=== PATIENT | male | born 1940 | race Native Hawaiian/Other Pacific Islander ===

== ENCOUNTER 2016-04-20 13:10 | Outpatient (CLI) | payer OTHER, MEDICARE ==
[2016-04-20 13:50] LABS: POTASSIUM 4.3 mmol/L (3.6-5.2); SODIUM 139 mmol/L (136-145)
[2016-04-20 14:34] LABS: PLATELET COUNT 165 K/uL (142-355)
== END 2016-04-20 19:49 | disposition home or self-care (01) ==
LOC: LAB 13:10
PROVIDERS: Nurse Practitioner Family
DX: I25.10 Atherosclerotic heart disease of native coronary artery without angina pectoris (principal); E11.9 Type 2 diabetes mellitus without complications; R53.83 Other fatigue; I10 Essential (primary) hypertension; Z12.5 Encounter for screening for malignant neoplasm of prostate
CPT/HCPCS: 80053; 80061; 83036; 84439; 84443; 85027; G0103

== ENCOUNTER 2016-05-21 08:50 | Outpatient (CLI) | payer OTHER, MEDICARE | END 2016-05-21 09:50 | disposition home or self-care (01) | LOC: LABW 08:50 | PROVIDERS: Internal Medicine Interventional Cardiology | DX: E78.4 Other hyperlipidemia (principal) | CPT/HCPCS: 36415; 80061; 80076 ==

== ENCOUNTER 2016-09-07 12:48 | Outpatient (CLI) | payer OTHER, MEDICARE ==
[2016-09-07 13:16] LABS: PLATELET COUNT 220 K/uL (142-355)
[2016-09-07 13:32] LABS: POTASSIUM 3.9 mmol/L (3.6-5.2); SODIUM 140 mmol/L (136-145)
== END 2016-09-07 13:50 | disposition home or self-care (01) ==
LOC: LAB 12:48
PROVIDERS: Nurse Practitioner Family
DX: Z00.00 Encounter for general adult medical examination without abnormal findings (principal); E11.9 Type 2 diabetes mellitus without complications; R53.83 Other fatigue; R53.81 Other malaise; I10 Essential (primary) hypertension; E55.9 Vitamin D deficiency, unspecified
CPT/HCPCS: 80053; 80061; 82306; 82607; 83036; 84436; 84443; 85027

== ENCOUNTER 2016-09-14 08:07 | Outpatient (CLI) | payer OTHER, MEDICARE | END 2016-09-14 19:13 | disposition home or self-care (01) | LOC: US 08:07 | DX: R10.13 Epigastric pain (principal) ==

== ENCOUNTER 2016-11-30 12:56 | Outpatient (CLI) | payer OTHER, MEDICARE ==
[2016-11-30 14:08] LABS: PLATELET COUNT 260 K/uL (142-355)
[2016-11-30 14:28] LABS: POTASSIUM 4.1 mmol/L (3.6-5.2); SODIUM 137 mmol/L (136-145)
== END 2016-11-30 14:00 | disposition home or self-care (01) ==
LOC: LAB 12:56
PROVIDERS: Nurse Practitioner Family
DX: Z00.00 Encounter for general adult medical examination without abnormal findings (principal); I10 Essential (primary) hypertension; R53.83 Other fatigue; R53.81 Other malaise; R10.13 Epigastric pain; R73.09 Other abnormal glucose
CPT/HCPCS: 80053; 80061; 82248; 83036; 84436; 84443; 85027

== ENCOUNTER 2016-12-20 08:20 | Outpatient (CLI) | payer OTHER, MEDICARE ==
[2016-12-20 15:16] LABS: PLATELET COUNT 191 K/uL (142-355)
[2016-12-20 15:26] LABS: SODIUM 135 mmol/L (136-145)
== END 2016-12-20 09:30 | disposition home or self-care (01) ==
LOC: LAB 08:20 → US 08:20
PROVIDERS: Nurse Practitioner Family
DX: R10.84 Generalized abdominal pain (principal)
CPT/HCPCS: 80053; 82150; 83690; 85027; 86318

== ENCOUNTER 2017-04-12 06:39 | Outpatient (CLI) | payer OTHER, MEDICARE | END 2017-04-12 21:56 | disposition home or self-care (01) | LOC: LABW 06:39 | DX: N40.1 Benign prostatic hyperplasia with lower urinary tract symptoms (principal) | CPT/HCPCS: 36415; 84153 ==

== ENCOUNTER 2017-08-09 21:57 | Emergency (ER) | payer OTHER, MEDICARE ==
[~2017-08-09] VITALS: Ht 170.2 cm; Wt 81.6 kg
[2017-08-09 22:25] VITALS: TEMP 98.7
[2017-08-10 01:11] VITALS: BP 129/63
== END 2017-08-10 01:17 | disposition home or self-care (01) ==
LOC: ED 21:57
DX: S22.32XA Fracture of one rib, left side, initial encounter for closed fracture (principal); S43.102A Unspecified dislocation of left acromioclavicular joint, initial encounter; W20.8XXA Other cause of strike by thrown, projected or falling object, initial encounter; Y92.89 Other specified places as the place of occurrence of the external cause
CPT/HCPCS: 99283; J1885

== ENCOUNTER 2017-08-19 13:39 | Outpatient (CLI) | payer OTHER, MEDICARE ==
[2017-08-19 14:36] LABS: PLATELET COUNT 262 K/uL (142-355)
[2017-08-19 15:24] LABS: POTASSIUM 4.3 mmol/L (3.6-5.2)
== END 2017-08-19 19:51 | disposition home or self-care (01) ==
LOC: LAB 13:39
PROVIDERS: Nurse Practitioner Family
DX: I10 Essential (primary) hypertension (principal); R53.83 Other fatigue; R53.81 Other malaise; E11.9 Type 2 diabetes mellitus without complications
CPT/HCPCS: 36415; 80053; 80061; 83036; 84436; 84443; 85027

== ENCOUNTER 2019-06-26 07:54 | Outpatient (CLI) | payer OTHER, MEDICARE | END 2019-06-26 22:04 | disposition home or self-care (01) | LOC: LABW 07:54 | PROVIDERS: Internal Medicine Interventional Cardiology | DX: Z12.5 Encounter for screening for malignant neoplasm of prostate (principal); E11.9 Type 2 diabetes mellitus without complications; E78.49 Other hyperlipidemia | CPT/HCPCS: 36415; 80061; 80076; 83036; 84153 ==

== ENCOUNTER 2019-10-06 14:54 | Outpatient (CLI) | payer OTHER, MEDICARE | END 2019-10-06 19:42 | disposition home or self-care (01) | LOC: LAB 14:54 | DX: U07.1 COVID-19 (principal); Z20.828 Contact with and (suspected) exposure to other viral communicable diseases | CPT/HCPCS: 87635; G2023; U0003 ==

== ENCOUNTER 2020-06-21 07:30 | Outpatient (CLI) | payer OTHER, MEDICARE | END 2020-06-21 19:39 | disposition home or self-care (01) | LOC: LABW 07:30 | PROVIDERS: ATTEND Internal Medicine Interventional Cardiology | DX: E78.49 Other hyperlipidemia (principal) | CPT/HCPCS: 36415; 80061; 80076 ==

== ENCOUNTER 2020-06-30 08:01 | Outpatient (CLI) | payer OTHER, MEDICARE | END 2020-06-30 23:14 | disposition home or self-care (01) | LOC: LABW 08:01 | PROVIDERS: ATTEND Urology | DX: R97.20 Elevated prostate specific antigen [PSA] (principal); R73.03 Prediabetes | CPT/HCPCS: 36415; 83036; 84153 ==

== ENCOUNTER 2020-07-16 15:04 | Emergency (ER) | payer OTHER, MEDICARE ==
[~2020-07-16] VITALS: Ht 167.6 cm; Wt 79.4 kg
[2020-07-16 15:12] VITALS: BP 132/79; TEMP 98
== END 2020-07-16 16:13 | disposition home or self-care (01) ==
LOC: ED 15:04
DX: S61.245A Puncture wound with foreign body of left ring finger without damage to nail, initial encounter (principal); W45.8XXA Other foreign body or object entering through skin, initial encounter; Y92.89 Other specified places as the place of occurrence of the external cause
CPT/HCPCS: 99282; J2001

== ENCOUNTER 2020-07-30 07:23 | Outpatient (CLI) | payer OTHER, MEDICARE ==
[2020-07-30 08:24] LABS: PLATELET COUNT 177 K/uL (142-355)
[2020-07-30 08:26] LABS: POTASSIUM 3.9 mmol/L (3.6-5.2)
== END 2020-07-30 18:53 | disposition home or self-care (01) ==
LOC: LABW 07:23
PROVIDERS: ATTEND Internal Medicine Endocrinology, Diabetes & Metabolism
DX: Z00.00 Encounter for general adult medical examination without abnormal findings (principal); E11.9 Type 2 diabetes mellitus without complications; I10 Essential (primary) hypertension; R53.83 Other fatigue; R53.81 Other malaise; E78.49 Other hyperlipidemia; Z79.899 Other long term (current) drug therapy
CPT/HCPCS: 36415; 80048; 82306; 82607; 83525; 83735; 84681; 85027

== ENCOUNTER 2021-02-24 10:19 | Outpatient (CLI) | payer OTHER, MEDICARE | END 2021-02-24 23:01 | disposition home or self-care (01) | LOC: RAD 10:19 | PROVIDERS: ATTEND Nurse Practitioner Family | DX: M25.552 Pain in left hip (principal); M54.16 Radiculopathy, lumbar region ==

== ENCOUNTER 2021-03-01 19:49 | Inpatient (IN) | payer OTHER, MEDICARE ==
[~2021-03-01] VITALS: Ht 170.2 cm; Wt 80.7 kg
[2021-03-01] VITALS (9 sets, daily range): BP systolic 102–162; BP diastolic 60–84; TEMP 98.2–98.3; Ht 170.2 cm; Wt 80.7 kg
[2021-03-01 20:39] LABS: POTASSIUM 3.7 mmol/L (3.6-5.2)
[2021-03-01 20:41] LABS: PLATELET COUNT 273 K/uL (142-355)
[2021-03-02 02:48] LABS: PLATELET COUNT 200 K/uL (142-355)
[2021-03-02 03:04] LABS: POTASSIUM 3.9 mmol/L (3.6-5.2)
[2021-03-02 04:00] VITALS: BP 111/59; TEMP 99.1
[2021-03-02 08:00] VITALS: BP 95/65; TEMP 99.4
[2021-03-02] MEDS ORDERED: FEXOFENADINE H180 M1 PO (08:48)
[2021-03-02] MEDS ORDERED: MONTELUKAST SOD10 MG PO (08:49)
[2021-03-02] MEDS ORDERED: LIPITOR40 MG PO (08:50)
[2021-03-02] MEDS ORDERED: AMLODIPINE BESYLATE PO (08:51)
[2021-03-02] MEDS ORDERED: HYDR25TA60 PO (09:04)
[2021-03-02 12:00] VITALS: BP 136/73; TEMP 97.8
[2021-03-02 16:00] VITALS: BP 141/73; TEMP 98.3
[2021-03-02 19:50] LABS: PLATELET COUNT 192 K/uL (142-355)
[2021-03-02 20:00] VITALS: BP 151/68; TEMP 98.8
[2021-03-02 20:14] LABS: PARTIAL THROMBOPLASTIN TIME 25.2 SECONDS (24.5-33.6)
[2021-03-03] VITALS: BP 145/76; TEMP 98.6
[2021-03-03 04:00] VITALS: BP 132/78; TEMP 98.1
[2021-03-03 05:48] LABS: PLATELET COUNT 179 K/uL (142-355)
[2021-03-03 06:08] LABS: POTASSIUM 3.4 mmol/L (3.6-5.2)
[2021-03-03 08:00] VITALS: BP 143/88; TEMP 98.2
[2021-03-03 12:00] VITALS: BP 124/73; TEMP 98.5
[2021-03-03 16:00] VITALS: BP 125/74; TEMP 98.4
[2021-03-03 20:00] VITALS: BP 123/63; TEMP 98.4
[2021-03-04 00:17] VITALS: BP 137/75; TEMP 98.7
[2021-03-04 04:00] VITALS: BP 139/78; TEMP 98.3
[2021-03-04 04:22] VITALS: BP 139/78; TEMP 98.3
[2021-03-04 04:52] LABS: POTASSIUM 3.3 mmol/L (3.6-5.2)
[2021-03-04 08:22] VITALS: BP 140/81; TEMP 98
[2021-03-04 12:00] VITALS: BP 139/81; TEMP 98.2
== END 2021-03-04 12:36 | disposition home or self-care (01) | DRG 193 ==
LOC: ED 19:49 → MED/SURG 21:50
PROVIDERS: Emergency Medicine; ADMIT Emergency Medicine; ATTEND Internal Medicine Endocrinology, Diabetes & Metabolism
DX: J18.8 Other pneumonia, unspecified organism (principal); I21.4 Non-ST elevation (NSTEMI) myocardial infarction; I10 Essential (primary) hypertension; E11.9 Type 2 diabetes mellitus without complications; I25.10 Atherosclerotic heart disease of native coronary artery without angina pectoris; E78.49 Other hyperlipidemia
CPT/HCPCS: 36415; 80048; 80053; 83036; 83690; 84484; 85027; 85610; 85730; 87040; 87635; 93005; 96361; 96365; 96375; 99284; J1644; J1956; J2270; J3490; U0003

== ENCOUNTER 2021-05-01 10:58 | Outpatient (CLI) | payer OTHER, MEDICARE ==
[~2021-05-01 10:58] MED LIST: AMLODIPINE BESYLATE PO; FEXOFENADINE H180 M1 PO; HYDR25TA60 PO; LIPITOR40 MG PO; MONTELUKAST SOD10 MG PO
== END 2021-05-01 19:39 | disposition home or self-care (01) ==
LOC: MRI 10:58
PROVIDERS: ATTEND Nurse Practitioner Family
DX: M47.27 Other spondylosis with radiculopathy, lumbosacral region (principal)

== ENCOUNTER 2022-03-21 07:27 | Outpatient (CLI) | payer OTHER, MEDICARE | END 2022-03-21 19:04 | disposition home or self-care (01) | LOC: LABW 07:27 | PROVIDERS: ATTEND Internal Medicine Interventional Cardiology | DX: E78.49 Other hyperlipidemia (principal) | CPT/HCPCS: 36415; 80061; 80076 ==

== ENCOUNTER 2022-09-13 07:46 | Outpatient (CLI) | payer OTHER, MEDICARE | END 2022-09-13 19:46 | disposition home or self-care (01) | LOC: LABW 07:46 | PROVIDERS: ATTEND Internal Medicine Interventional Cardiology | DX: E78.49 Other hyperlipidemia (principal) | CPT/HCPCS: 36415; 80061; 80076 ==